=== PATIENT | male | born 1965 | race Caucasian/White ===

== ENCOUNTER → 2018-09-12 | Outpatient (CLI) | payer BC ==
[2018-09-12 13:41] LABS: HCT 48.2 % (39.0-53.0); HGB 16.1 gm/dL (13.0-17.5); MCH 30.3 pg (25.0-35.0); MCHC 33.3 g/dL (31.0-37.0); Platelet Count 252 k/uL (150-450); WBC 7.5 k/uL (3.8-10.6)
[2018-09-12 13:45] LABS: Appearance,Urine Clear (Clear); Bilirubin,Urine Negative (Negative); Blood,Urine Negative (Negative); Color,Urine Yellow; Glucose,Urine (UA) Negative (Negative); Ketones,Urine Negative (Negative); Leukocyte Esterase,Urine Negative (Negative); Nitrite,Urine Negative (Negative); PH, Urine 5.5 (5.0-8.0); Protein,Urine Negative (Negative); Specific Gravity,Urine 1.019 (1.001-1.035); Urobilinogen,Urine <2.0 mg/dL (<2.0)
[2018-09-12 17:33] LABS: Albumin 4.2 g/dL (3.80-4.90); Albumin/Globulin Ratio 1.75 (1.20-2.10); Anion Gap 8.2 mmol/L (4.00-12.00); Calcium 9.4 mg/dL (8.7-10.3); Carbon Dioxide 26.8 mmol/L (21.6-31.8); Globulin 2.4 g/dL (2.1-3.7); LDL Cholesterol,Calculated 105.4 mg/dL (0.0-131.0); Potassium 4.1 mmol/L (3.5-5.5); Total Bilirubin 1.4 mg/dL (0.3-1.2); Total Protein 6.6 g/dL (6.2-8.2); VLDL Calculation 16.6 mg/dL (5.00-40.00)
[2018-09-13 02:44] LABS: Hemoglobin A1C 6.1 % (4.0-6.0)
== END | disposition home or self-care (01) ==
LOC: LABWHC1 12:21
PROVIDERS: ATTEND Family Medicine
DX: Z00.00 Encounter for general adult medical examination without abnormal findings (principal)
CPT/HCPCS: 36415; 80053; 80061; 81003; 82272; 83036; 84153; 84443; 85027; 86803

== ENCOUNTER → 2018-10-04 | Outpatient (CLI) | payer BC ==
[2018-10-04 16:51] LABS: Bilirubin, Conjugated 0.6 mg/dL (0.20-0.40); Bilirubin,Unconjugated 1.2 mg/dL; Total Bilirubin 1.8 mg/dL (0.2-1.2)
== END | disposition home or self-care (01) ==
LOC: LABWHC1 08:02
PROVIDERS: ATTEND Family Medicine
DX: N40.0 Benign prostatic hyperplasia without lower urinary tract symptoms (principal); R89.9 Unspecified abnormal finding in specimens from other organs, systems and tissues
CPT/HCPCS: 36415; 82248; 84153; 84460

== ENCOUNTER 2018-10-07 07:25 | Day surgery (SDC) | payer BC ==
[2018-10-03 12:24] VITALS: BMI 28.8
[~2018-10-07 07:25] MED LIST: LACTATED RINGERS 1,000 ML IV SCH; LIDOCAINE 1% 20 ML VIAL (10MG/ML) FOR IV START INTRADERMA PRN
[2018-10-07 07:47] VITALS: RESP 18; TEMP 980
[2018-10-07] MEDS ORDERED: ONDANSETRON 4 MG/2 ML VIAL IVP ONE (08:05)
[2018-10-07 08:12] LABS: Glucose,Whole Blood 92 mg/dL (75-99)
[2018-10-07] MEDS ORDERED: PROPOFOL 10 MG/ML 20 ML VIAL IV ONE (08:38)
--- NOTE | 2018-10-07 08:59 | P.PCN ---
Date of Procedure: 10/07/18 Procedure(s) Performed: Procedure: Total colonoscopy. Preoperative diagnosis: Screening for neoplasia, patient has family history of colon cancer in his sister. Postoperative diagnosis: Exam within normal limits. Preparation: HalfLytely prep. Sedation: Was provided by anesthesia. Brief clinical history: The patient is a 53-year-old male who is family history of colon cancer in his sister who is scheduled for this evaluation for screening for neoplasia. He had a prior exam in 2010. The patient has no abdominal complaints, bleeding or anemia. Procedure: With the patient on his left lateral decubitus position and after informed consent and adequate sedation, the perianal area was inspected and it did not show any fissures or fistulas. There were no masses felt on digital rectal examination. The Olympus CFH 190L video colonoscope was then inserted in the rectum in the usual fashion and advanced to the cecum. The mucosa appeared healthy. No polyps or tumors were seen or any obvious diverticular disease or other pathology. I retroflexed the endoscope in the rectum before the endoscope was withdrawn. The patient tolerated the procedure well. Plan: The patient was reassured. He will follow up with you as planned and I recommended repeat exam in 5 years.
[2018-10-07 09:17] VITALS: BP 113/71; PULSE 65
== END 2018-10-07 09:39 | disposition home or self-care (01) ==
LOC: ORWHC2ENDO 07:25
DX: Z12.11 Encounter for screening for malignant neoplasm of colon (principal); Z80.0 Family history of malignant neoplasm of digestive organs; E11.9 Type 2 diabetes mellitus without complications; Z88.5 Allergy status to narcotic agent
CPT/HCPCS: J2405; J2704; G0105; 45378

== ENCOUNTER → 2018-10-31 | Outpatient (CLI) | payer BC ==
--- NOTE | 2018-10-31 08:18 | US ---
EXAMINATION TYPE: US liver DATE OF EXAM: 10/31/2018 COMPARISON: NONE CLINICAL HISTORY: R74.8 ABN LEVELS OF OTHER SERUM ENZYMES. no symptoms, elevated labs EXAM MEASUREMENTS: Liver Length: 14.7 cm Gallbladder Wall: 0.3 cm CBD: 0.6 cm Right Kidney: 10.3 x 5.1 x 6.6 cm Pancreas: wnl Liver: There is mildly increased echogenicity of the hepatic parenchyma with diminished visualizatio n of the portal triads most commonly relating to hepatic steatosis and limiting evaluation for underl yamila hepatic masses. Gallbladder: wnl Evidence for sonographic Franz's sign: no CBD: wnl Right Kidney: wnl IMPRESSION: Sonographic findings most commonly related to mild degree hepatic steatosis. Correlate wi th liver function tests results.
== END | disposition home or self-care (01) ==
LOC: RADUSWWP 06:45
PROVIDERS: ATTEND Family Medicine
DX: K76.0 Fatty (change of) liver, not elsewhere classified (principal); R74.8 Abnormal levels of other serum enzymes
CPT/HCPCS: 76705

== ENCOUNTER → 2018-11-17 | Outpatient (CLI) | payer BC ==
[2018-11-18 09:32] VITALS: BMI 29.2
== END ==
LOC: LABWHC1 13:10
PROVIDERS: ATTEND Family Medicine
DX: R73.03 Prediabetes (principal)
CPT/HCPCS: 97802

== ENCOUNTER 2024-09-08 08:22 | Day surgery (SDC) | payer BC ==
[2024-09-08] MEDS: IV FLUID CONTINUATION 1,000 ML IV ONE (08:47)
[2024-09-08] MEDS: LACTATED RINGERS 1,000 ML IV SCH (09:03)
[2024-09-08 09:08] VITALS: RESP 16; TEMP 98
[2024-09-08] MEDS ORDERED: PROPOFOL 10 MG/ML 20 ML VIAL IV ONE (09:45)
[2024-09-08] MEDS ORDERED: ONDANSETRON 4 MG/2 ML VIAL ONE (09:45)
--- NOTE | 2024-09-08 10:01 | P.PCN ---
Date of Procedure: 09/08/24 Procedure(s) Performed: BRIEF HISTORY: Patient is a 59-year-old pleasant white meat scheduled for an elective colonoscopy as a part of screening for colon cancer and family history of colon cancer. His sister was diagnosed with colon cancer at age 35. PROCEDURE PERFORMED: Colonoscopy with biopsy. PREOPERATIVE DIAGNOSIS: Screening for colon cancer/family history of colon cancer. IV sedation per Anesthesia. PROCEDURE: After informed consent was obtained, the patient, was brought into the endoscopy unit. IV sedation was administered by Anesthesia under continuous monitoring. Digital rectal examination was normal. Initially the Olympus CF-160 flexible video colonoscope was then inserted in the rectum, gradually advanced into the cecum without any difficulty. Careful examination was performed as the scope was gradually being withdrawn. Ileocecal valve and the appendiceal orifice were visualized and appeared normal. Prep was excellent. Mucosa of the cecum, ascending colon, normal. In the hepatic flexure there was a 3 mm sessile polyp that was removed by cold biopsy. Rest of the transverse colon, descending colon, sigmoid colon, and rectum appeared normal. Retroflexion was performed in the rectum and no lesions were seen. The patient tolerated the procedure well. IMPRESSION: 3 mm r hepatic rectal polyp status post cold biopsy. Rest of the colon appeared normal RECOMMENDATIONS: Findings of this examination were discussed with the patient as well as his family. He was advised to follow-up with the biopsy results and recommended repeat colonoscopy in 5 years because of the family history of colon cancer.
[2024-09-08 10:21] VITALS: BP 115/69; PULSE 62
== END 2024-09-08 10:44 | disposition home or self-care (01) ==
LOC: ORWHC2ENDO 08:22
PROVIDERS: ATTEND Internal Medicine Gastroenterology
DX: Z12.11 Encounter for screening for malignant neoplasm of colon (principal); I10 Essential (primary) hypertension; Z79.899 Other long term (current) drug therapy; Z88.5 Allergy status to narcotic agent; Z80.0 Family history of malignant neoplasm of digestive organs
CPT/HCPCS: 88305; 45380; J2405; J2704